=== PATIENT | female | born 1980 | race Caucasian/White ===

== ENCOUNTER 2023-01-10 13:59 | Outpatient (CLI) | payer BC ==
--- NOTE | 2023-01-19 13:14 | Mammography Report ---
BILATERAL DIGITAL SCREENING MAMMOGRAM 3D/2D: 01/10/2023 CLINICAL: Routine screening. No prior exams were available for comparison. Both breasts are heterogeneously dense, which may obscure small masses (category c / 51-75% glandular tissue). There is a focal asymmetry in the right breast central to the nipple in the retroareolar region. There also is a focal asymmetry in the right breast at 1 o'clock anterior depth. No other significant masses, calcifications, or other findings are seen in either breast. IMPRESSION: INCOMPLETE: NEEDS ADDITIONAL IMAGING EVALUATION The focal asymmetry in the right breast central to the nipple in the retroareolar region is indetermi radha. Additional views with possible ultrasound are recommended. The focal asymmetry in the right breast at 1 o'clock anterior depth is indeterminate. Additional vie ws with possible ultrasound are recommended. Based on the Tyrer Cuzick model (a risk assessment model) the patients lifetime risk is 13.8% and he r 10 year risk is 2.1%. According to the ACR, ACS, and NCCN guidelines, an annual breast MRI exam destiny ng with mammogram is recommended if the patients lifetime risk is 20% or greater. This exam was interpreted at Station ID: [id number]. NOTE: For mammograms, a report in lay terms will be sent to the patient. Approximately 15% of breast malignancies will not be visualized mammographically. In the management of a palpable breast mass, a negative mammogram must not discourage biopsy of a clinically suspicious lesion. Electronically Signed By: Chris Huff M.D. lc/:01/18/2023 16:14:24 ACR BI-RADS Category 0: Incomplete 3340F PARENCHYMAL PATTERN: (D) - The breast(s) demonstrate(s) heterogeneously dense fibroglandular parenchy ma. BI-RADS CATEGORY: (0) - 0 Mammo and [place] [id number] Immediate follow-up LATERALITY: (B)
== END 2023-01-10 14:00 | disposition home or self-care (01) ==
LOC: DI 13:59
DX: Z12.31 Encounter for screening mammogram for malignant neoplasm of breast (principal); R92.333 Mammographic heterogeneous density, bilateral breasts; R92.8 Other abnormal and inconclusive findings on diagnostic imaging of breast

== ENCOUNTER 2023-02-16 10:11 | Outpatient (CLI) | payer BC ==
--- NOTE | 2023-02-19 07:49 | Ultrasound Report ---
LIMITED ULTRASOUND OF RIGHT BREAST: 02/16/2023 CLINICAL: Patient returns today to evaluate a focal asymmetry in the right breast. Comparison is made to exam dated: 01/10/2023 mammogram - [facility]. Color flow ultrasound of the right breast 1 o'clock region was performed. Rothman scale images of the r eal-time examination were reviewed. There is an oval hypoechoic mass with circumscribed margins in the right breast at 1 o'clock, 3 cm fr om the nipple measuring 9 x 3 x 8 mm. Color flow imaging demonstrates no vascularity present. This ma ss likely corresponds to mass seen on mammogram. IMPRESSION: PROBABLY BENIGN Right breast 9 mm oval circumscribed mass at 1 o'clock. Finding may represent a lymph node and is pro bably benign. Recommend follow-up mammogram with possible ultrasound in 6 months to demonstrate stabi lity. Comparison to outside priors if they become available can also be performed to evaluate for sta bility of the finding. Findings and recommendations were conveyed to the patient during today's evaluation. This exam was interpreted at Station ID: [id number]. Electronically Signed By: Caridad Miguel M.D., PH.D eb/:02/17/2023 02:13:52 Ultrasound BI-RADS: 3 Probably benign BI-RADS CATEGORY: (3) - 3 Mammo and [place] [id number] 6 month follow-up LATERALITY: (B)
--- NOTE | 2023-02-19 07:49 | Mammography Report ---
UNILATERAL RIGHT DIGITAL DIAGNOSTIC MAMMOGRAM 3D/2D WITH SPOT COMPRESSION: 02/16/2023 CLINICAL: Patient returns today to evaluate a focal asymmetry in the right breast. Comparison is made to exam dated: 01/10/2023 mammogram - [facility]. The right breast is heterogeneously dense, which may obscure small masses (category c / 51-75% glandu lar tissue). The focal asymmetry seen on recent screening mammogram in the retroareolar region did not persist wit h additional imaging and is consistent with superimposition of normal breast tissue. There is a focal asymmetry in the right breast at 1 o'clock anterior depth. This corresponds to focal asymmetry seen on recent screening mammogram. No other significant masses or calcifications are seen in the breast. IMPRESSION: INCOMPLETE: NEEDS ADDITIONAL IMAGING EVALUATION Right breast focal asymmetry at 1 o'clock anterior depth. An ultrasound is recommended for further ev aluation and is scheduled to immediately follow this examination. Comparison to outside priors if the y become available can be performed to evaluate for stability of the finding. Based on the Tyrer Cuzick model (a risk assessment model) the patients lifetime risk is 14.4% and he r 10 year risk is 2.2%. According to the ACR, ACS, and NCCN guidelines, an annual breast MRI exam destiny ng with mammogram is recommended if the patients lifetime risk is 20% or greater. This exam was interpreted at Station ID: [id number]. NOTE: For mammograms, a report in lay terms will be sent to the patient. Approximately 15% of breast malignancies will not be visualized mammographically. In the management of a palpable breast mass, a negative mammogram must not discourage biopsy of a clinically suspicious lesion. Electronically Signed By: Caridad Miguel M.D., PH.D eb/:02/17/2023 02:08:53 ACR BI-RADS Category 0: Incomplete 3340F PARENCHYMAL PATTERN: (D) - The breast(s) demonstrate(s) heterogeneously dense fibroglandular parjovanna tam. BI-RADS CATEGORY: (0) - 0 Ultrasound [id number] Immediate follow-up LATERALITY: (B)
== END 2023-02-16 10:12 | disposition home or self-care (01) ==
LOC: DI 10:11
PROVIDERS: ATTEND Obstetrics & Gynecology
DX: N63.12 Unspecified lump in the right breast, upper inner quadrant (principal); R92.331 Mammographic heterogeneous density, right breast

== ENCOUNTER 2023-08-16 12:26 | Outpatient (CLI) | payer BC ==
--- NOTE | 2023-08-17 10:57 | Mammography Report ---
UNILATERAL RIGHT DIGITAL DIAGNOSTIC MAMMOGRAM 3D/2D: 08/16/2023 CLINICAL: Patient returns for a 6 month follow up of the right breast. Comparison is made to exams dated: 02/16/2023 ultrasound, 02/16/2023 mammogram, 01/10/2023 mammogram - [facility], and 12/19/2021 mammogram - [facility] [place]. The right breast is heterogeneously dense, which may obscure small masses (category c / 51-75% glandu lar tissue). There is a stable focal asymmetry in the right breast at 1 o'clock anterior depth. No other significant masses or calcifications are seen in the breast. IMPRESSION: INCOMPLETE: NEEDS ADDITIONAL IMAGING EVALUATION The stable focal asymmetry in the right breast is indeterminate. A targeted ultrasound is recommended and will immediately follow. Based on the Tyrer Cuzick model (a risk assessment model) the patient's lifetime risk is 14.4% and he r 10 year risk is 2.3%. According to the ACR, ACS, and NCCN guidelines, an annual breast MRI exam destiny ng with mammogram is recommended if the patient's lifetime risk is 20% or greater. This exam was interpreted at Station ID: [id number]. NOTE: For mammograms, a report in lay terms will be sent to the patient. Approximately 15% of breast malignancies will not be visualized mammographically. In the management of a palpable breast mass, a negative mammogram must not discourage biopsy of a clinically suspicious lesion. Electronically Signed By: Willi Ellis M.D. slc/:08/16/2023 13:06:19 ACR BI-RADS Category 0: Incomplete 3340F PARENCHYMAL PATTERN: (D) - The breast(s) demonstrate(s) heterogeneously dense fibroglandular kendall tam. BI-RADS CATEGORY: (0) - 0 Ultrasound [id number] Immediate follow-up LATERALITY: (B)
--- NOTE | 2023-08-17 10:57 | Ultrasound Report ---
LIMITED ULTRASOUND OF RIGHT BREAST: 08/16/2023 CLINICAL: Patient returns for a 6 month follow up of the right breast. Comparison is made to exams dated: 08/16/2023 mammogram, 02/16/2023 ultrasound, 02/16/2023 mammogram, 01/10/2023 mammogram - [facility], and 12/19/2021 mammogram - [facility] [place]. Color flow and real-time ultrasound of the right breast 1 o'clock region were performed. Rothman scale images of the real-time examination were reviewed. There is a 1 cm x 0.7 cm x 0.3 cm oval mass in the right breast at 1 o'clock anterior depth 3 cm from the nipple. This oval mass is hypoechoic. This abnormality is not significantly changed and correl ates with mammography findings. Color flow imaging demonstrates that there is no vascularity present . IMPRESSION: PROBABLY BENIGN The 1 cm circumscribed mass in the right breast most likely is a fibroadenoma and is probably benign. Not significantly changed in size. A follow-up mammogram and ultrasound in 6 months is recommended to demonstrate stability. Patient will be due for left breast mammogram at that time. Exam findings were conveyed to the patient. This exam was interpreted at Station ID: [id number]. Electronically Signed By: Willi Ellis M.D. slc/:08/16/2023 13:18:54 Ultrasound BI-RADS: 3 Probably benign BI-RADS CATEGORY: (3) - 3 Mammo and US [id number] 6 month follow-up LATERALITY: (B)
== END 2023-08-16 12:27 | disposition home or self-care (01) ==
LOC: DI 12:26
PROVIDERS: ATTEND Obstetrics & Gynecology
DX: N63.12 Unspecified lump in the right breast, upper inner quadrant (principal); R92.331 Mammographic heterogeneous density, right breast